=== PATIENT | female | born 1955 | race Caucasian/White ===

== ENCOUNTER → 2018-09-30 | Outpatient (CLI) | payer BC ==
[~2018-09-30] MED LIST: AMINOPHYLLINE INJ/PF 250 MG/10 ML SDV IV ONE; REGADENOSON INJ 0.4 MG/5 ML DISP.SYRIN IV ONE
--- NOTE | 2018-09-30 19:36 | DRAGON STRESS TEST REPORT ---
INTRAVENOUS LEXISCAN CARDIOLITE STRESS TEST USING SINGLE PHOTON EMMISION COMPUTERIZED TOMOGRAPHIC. DATE OF PROCEDURE: September 30, 2018, INDICATION : Dyspnea CARDIAC RISK FACTORS: Diabetes, hypertension, dyslipidemia, family history of CAD RESTING EKG: Sinus rhythm without any baseline ST-T wave changes STRESS EKG: No significant ST segment changes noted with LexiScan bolus REASON FOR TERMINATION: Protocol. PROCEDURE REPORT: Baseline heart rate 106 beats per minute with blood pressure of 140/61. Patient had no significant complaints. Patient was bolused with Lexiscan 0.4 mg intravenously followed by saline bolus. Heart rate at 2 minutes post bolus 118 with a blood pressure of 152/57. 3 minutes post bolus heart rate 116 with blood pressure of 142/68. No significant EKG changes were noted. Patient had no significant complaints during the procedure or postprocedure. CONCLUSIONS: Normal EKG and hemodynamic response to IV LexiScan. NUCLEAR DATA: At rest the patient was given 12.28 millicuries of technetium 99 sestamibi injected intravenously. As per protocol rest gated SPECT images were obtained. On day of stress test, the patient was given intravenous LexiScan at a dose of 0.4 mg in 5 mL intravenously, followed by flush with normal saline. Subsequently the stress dose of 37.3 millicuries of technetium 99 sestamibi was injected intravenously. As per protocol stress gated images were obtained. NUCLEAR INTERPRETATION: Both raw and processed data were used for interpretation. Visual, qualitative, computer-generated quantitative data was used. There was good myocardial uptake of technetium compound. Motion artifact and soft tissue attenuations were noted. Increased visceral uptake was noted. No definitive areas of transient perfusion defect noted, No definitive areas of fixed perfusion defect or scars noted. EKG gated imaging showed LV EF at 72 %, rest and stress gated EF similar visually. T. I D. ratio was 1.15. Lung heart ratio noted to be within normal limits 0.35. No significant extracardiac and abnormal radiotracer activities were noted. RV free wall uptake was noted to be WNL. IMPRESSION: Also refer to comments under nuclear interpretation. Also test results needs to be interpreted in the context of pretest probability. 1. No definitive areas of transient perfusion defect noted. 2. There is no definitive scintigraphic evidence of myocardial infarction/scar. 3. EKG gated imaging shows left ventricular ejection fraction of approx. 72 %. 4. Clinical correlation requested as worse disease and or balanced ischemia could be missed. In approximately 10% of the cases Lexiscan may not cause adequate vasodilatory stress. RECOMMENDATIONS: Aggressive risk factor modification and medical management. Further evaluation may be needed if continued symptoms or other high risk indicators are noted on clinical evaluation. Close cardiology follow-up is also recommended. Clinical correlation with echocardiogram derived ejection fraction. Inability to exercise by itself can lead to increased cardiovascular event risks. Consider cardiology consultation and or follow-up if clinically indicated. I am available for cardiology evaluation and consultation if requested by the solar photovoltaic crew lead, unless patient already has a esl instructional assistant. Dr. Bret Thornton. MRCP Board certified in cardiology and sleep medicine. Board certified in nuclear cardiology, adult echocardiography. DESTINEE
--- NOTE | 2018-09-30 19:41 | XCELERA REPORT ---
[address] [address] Transthoracic Echocardiogram Report Name: BENNETT JARAMILLO Age: 62 yrs Gender: Female : 1955 Patient Status: Outpatient Patient Location: RAD Study Date: 09/30/2018 10:35 AM Height: 67 in Weight: 188 lb BSA: 2.0 m2 Procedure: A complete two-dimensional transthoracic echocardiogram was performed (2D, M-mode, spectral and color flow Doppler). The study was technically adequate with some images being suboptimal in quality. Reason For Study: DYSPNEA Ordering Physician: LILIA ESCOBEDO Performed By: Saúl Anders Interpretation Summary The left ventricular ejection fraction is normal. Doppler measurements suggest pseudonormalized left ventricular relaxation, which is associated with grade II/IV or mild to moderate diastolic dysfunction Wall motion cannot be accurately commented on, but no definite regional wall motion abnormalities noted. The left ventricle is grossly normal size. There is mild concentric left ventricular hypertrophy. The right ventricular systolic function is normal. The left atrial size is normal. The right atrium is normal in size There is a trace amount of mitral regurgitation There is no mitral valve stenosis. No aortic regurgitation is present. There is no aortic valve stenosis There is a trace to mild amount of tricuspid regurgitation The aortic root is not well visualized but is probably normal size. The inferior vena cava appeared normal and decreased > 50% with respiration (RAP 5-10 mmHg) There is no pericardial effusion. MMode/2D Measurements & Calculations RVDd: 2.6 cm LVIDd: 3.6 cm FS: 40.8 % Ao root diam: 2.3 cm IVSd: 0.91 cm LVIDs: 2.1 cm EDV(Teich): 55.4 ml Ao root area: 4.1 cm2 LVPWd: 0.90 cm ESV(Teich): 15.2 ml LA dimension: 2.4 cm EF(Teich): 72.5 % Doppler Measurements & Calculations MV E max masha: MV P1/2t max masha: Ao V2 max: LV V1 max P.5 cm/sec 79.6 cm/sec 157.5 cm/sec 5.9 mmHg MV A max masha: MV P1/2t: 86.6 msec Ao max P.9 mmHgLV V1 max: 112.5 cm/sec MVA(P1/2t): 2.5 cm2 121.4 cm/sec MV E/A: 0.68 MV dec slope: 269.2 cm/sec2 MV dec time: 0.25 sec PA V2 max: TR max masha: MV P1/2t-pr_phl: 126.5 cm/sec 246.5 cm/sec 86.6 msec PA max P.4 mmHgTR max P.3 mmHg Left Ventricle The left ventricle is grossly normal size. There is mild concentric left ventricular hypertrophy. The left ventricular ejection fraction is normal. Doppler measurements suggest pseudonormalized left ventricular relaxation, which is associated with grade II/IV or mild to moderate diastolic dysfunction. Wall motion cannot be accurately commented on, but no definite regional wall motion abnormalities noted. Right Ventricle The right ventricle is grossly normal size. There is normal right ventricular wall thickness. The right ventricular systolic function is normal. Atria The right atrium is normal in size. The left atrial size is normal. Interarterial septum not well visualized and not well dopplered. Cannot comment on ASD/PFO presence. Mitral Valve The mitral valve is grossly normal. There is no mitral valve stenosis. There is a trace amount of mitral regurgitation. Aortic Valve The aortic valve is grossly normal. There is no aortic valve stenosis. No aortic regurgitation is present. Tricuspid Valve The tricuspid valve is not well visualized, but is grossly normal. There is no tricuspid stenosis. There is a trace to mild amount of tricuspid regurgitation. Best estimated RVSP is approximately 30 mm/Hg. Pulmonic Valve The pulmonic valve is not well visualized. Great Vessels The aortic root is not well visualized but is probably normal size. The inferior vena cava appeared normal and decreased > 50% with respiration (RAP 5-10 mmHg). Effusions There is no pericardial effusion. : LILIA ESCOBEDO > Timmy Thornton
== END ==
LOC: RAD 08:22
PROVIDERS: ATTEND Physician Assistant
DX: R06.09 Other forms of dyspnea (principal)
CPT/HCPCS: 93306; 93017; 78452; A9500; J2785; J0280; Q9969

== ENCOUNTER → 2018-10-11 | Outpatient (CLI) | payer BC ==
--- NOTE | 2018-10-14 16:29 | WOMENS IMAGING REPORT ---
EXAM DESCRIPTION: 3D SCREENING MAMMO BILAT COMPLETED DATE/TIME: 10/11/2018 9:20 am REASON FOR STUDY: Z12.31 ROUTINE 3D BILATERAL SCREENING Z12.31 ENCNTR SCREEN MAMMOGRAM FOR MALIGNAN T NEOPLASM OF EAMON COMPARISON: None. EXAM PARAMETERS: Standard craniocaudal and mediolateral oblique views of each breast recorded using digital acquisition and breast tomosynthesis. Read with the assistance of CAD. .FORMER[facility] - [employer] Manager Version 9.2 LIMITATIONS: None. FINDINGS: RIGHT BREAST MASSES: Several well-circumscribed masses, 2 of the larger which are calcified fibroadenomas. CALCIFICATIONS: No new or suspicious calcifications. ARCHITECTURAL DISTORTION: None. DEVELOPING DENSITY: None. ASYMMETRY: None noted. OTHER: No other significant findings. LEFT BREAST MASSES: Several well-circumscribed smooth masses. CALCIFICATIONS: No new or suspicious calcifications. ARCHITECTURAL DISTORTION: None. DEVELOPING DENSITY: None. ASYMMETRY: None noted. OTHER: No other significant findings. IMPRESSION: Fibroadenomas. Fibrocystic change. 0 Incomplete: Needs Additional Imaging Evaluation and/or prior Mammograms for Comparison. BREAST DENSITY: b. There are scattered areas of fibroglandular density. BIRAD: ASSESSMENT: 0 Incomplete: Needs Additional Imaging Evaluation and/or prior Mammograms for C omparison. RECOMMENDATION: RECOMMENDED FOLLOW-UP: Ultrasound of both breasts. The patient will be contacted for additional imaging. COMMENT: The patient has been notified of the results by letter per [place] requirements. Additional no tification policies are in place for contacting patient with suspicious or incomplete findings. Quality ID #[id number]: The [employer] recommends an annual screening mammogram for women aged 40 years or over. This facility utilizes a reminder system to ensure that all patients receive reminder letters, and/or direct phone calls for appointments. This includes reminders for routine scr eening mammograms, diagnostic mammograms, or other Breast Imaging Interventions when appropriate. Th is patient will be placed in the appropriate reminder system. TECHNICAL DOCUMENTATION: FINDING NUMBER: (1) ASSESSMENT: (1) JOB ID: [id number] [employer]- All Rights Reserved Reading location - IP/workstation name: [email or web address]
== END ==
LOC: WI 08:55
PROVIDERS: ATTEND Physician Assistant
DX: Z12.31 Encounter for screening mammogram for malignant neoplasm of breast (principal)
CPT/HCPCS: 77063; 77067

== ENCOUNTER → 2018-10-21 | Outpatient (CLI) | payer BC ==
--- NOTE | 2018-10-21 15:52 | WOMENS IMAGING REPORT ---
EXAM DESCRIPTION: U/S BREAST UNILATERAL, COMPL COMPLETED DATE/TIME: 10/21/2018 10:10 am REASON FOR STUDY: R92.2 INCONCLUSIVE MAMMOGRAM LEFT; R92.2 INCONCLUSIVE MAMMOGRAM RIGHT R92.2 INCON CLUSIVE MAMMOGRAM COMPARISON: None. TECHNIQUE: Real-time and static grayscale imaging performed of the right and left breast targeted to the area of mammographic concern. Selected color Doppler images recorded. LIMITATIONS: None. FINDINGS: Bilateral breast ultrasound was performed. On the right side, 9 x 5 mm cyst is present at the 12 o'clock position, and a 3.5 mm cyst is present at the 9 o'clock position. On the right side at the 10 o'clock position, a 1.2 x 0.5 cm fibroadenoma with calcifications is pres ent. In the right breast at the 11 o'clock position, a 1.3 x 0.8 cm fibroadenoma with calcifications is present. On the left side, multiple breast parenchymal cysts are present, the largest at 12 o'clock is 8 x 7 m m, the largest at the 3 o'clock position is 7 x 5 mm. IMPRESSION: No suspicious findings detected by ultrasound. Multiple bilateral breast parenchymal cy sts and fibroadenomas. BIRAD: 2 Benign findings. RECOMMENDATION: RECOMMENDED FOLLOW-UP: Please continue yearly bilateral screening mammography/tomosy nthesis in October 2019 COMMENT: The [employer] (ACR) has developed recommendations for screening MRI of the breasts in certain patient populations, to be used in conjunction with mammography. Breast MRI s urveillance may be appropriate for women with more than 20% lifetime risk of developing breast cancer as determined by genetic testing, significant family history of the disease, or history of mantle r adiation for Hodgkins Disease. ACR Practice Guidelines 2008. TECHNICAL DOCUMENTATION: JOB ID: [id number] [employer]- All Rights Reserved Reading location - IP/workstation name: [email or web address]
== END ==
LOC: WI 09:18
PROVIDERS: ATTEND Physician Assistant
DX: N60.02 Solitary cyst of left breast (principal); N60.01 Solitary cyst of right breast; D24.1 Benign neoplasm of right breast
CPT/HCPCS: 76641

== ENCOUNTER → 2020-04-04 | Outpatient (CLI) | payer BC ==
--- NOTE | 2020-04-04 11:44 | WOMENS IMAGING REPORT ---
EXAM DESCRIPTION: 3D SCREENING MAMMO BILAT IMAGES COMPLETED DATE/TIME: 04/04/2020 9:17 am REASON FOR STUDY: ROUTINE SCREENING MAMMOGRAM Z12.31 Z12.31 ENCNTR SCREEN MAMMOGRAM FOR MALIGNANT N EOPLASM OF EAMON COMPARISON: 2019 EXAM PARAMETERS: Views: Standard craniocaudal and mediolateral oblique views of each breast recorded using digital acquisition and breast tomosynthesis. Read with the assistance of CAD. .[facility] - [employer] Manager Version 9.2 LIMITATIONS: None. FINDINGS: No suspicious masses, suspicious calcifications or architectural distortion. No areas of c oncern. IMPRESSION: NEGATIVE MAMMOGRAM. BIRADS 1. BREAST DENSITY: b. There are scattered areas of fibroglandular density. BIRAD: ASSESSMENT: 1 NEGATIVE RECOMMENDATION: ROUTINE SCREENING COMMENT: The patient has been notified of the results by letter per MQSA requirements. Additional no tification policies are in place for contacting patient with suspicious or incomplete findings. Quality ID #225: The [employer] recommends an annual screening mammogram for women aged 40 years or over. This facility utilizes a reminder system to ensure that all patients receive reminder letters, and/or direct phone calls for appointments. This includes reminders for routine scr eening mammograms, diagnostic mammograms, or other Breast Imaging Interventions when appropriate. Th is patient will be placed in the appropriate reminder system. TECHNICAL DOCUMENTATION: FINDING NUMBER: (1) ASSESSMENT: (1) JOB ID: [id number] 2010 [employer]- All Rights Reserved Reading location - IP/workstation name: [email or web address]
== END ==
LOC: WI 09:22
PROVIDERS: ATTEND Physician Assistant
DX: Z12.31 Encounter for screening mammogram for malignant neoplasm of breast (principal)
CPT/HCPCS: 77063; 77067